=== PATIENT | female | born 1950 | race American Indian/Alaskan Native ===

== ENCOUNTER 2017-05-01 10:31 | Emergency (ER) | payer SELFPAY ==
[2017-05-01 11:21] VITALS: BP 152/87
--- NOTE | 2017-05-01 12:50 | XRay Report ---
RIGHT KNEE, 3 views: History: Right knee pain. The bony architecture is intact without evidence of fracture or dislocation. Mild osteoarthritic changes are noted in the medial compartment and patellofemoral space. No significant soft tissue abnormality is seen. IMPRESSION: Mild osteoarthritic changes. No acute process.
--- NOTE | 2017-05-01 13:10 | Emergency Department Report ---
ED Extremity Problem HPI - General Chief complaint: Extremity Injury, Lower Stated complaint: SEVERE RT LEG PAIN/UNABLE TO WALK Time Seen by Provider: 05/01/17 12:58 Source: patient Mode of arrival: Ambulatory Limitations: No Limitations - History of Present Illness Initial comments: Patient is a 66-year-old female presents to ED with complains of right knee pain. Patient reports that the pain has been ongoing for the past few days. Worse when she tries to stand up. While walking pain gets better. Denies any other symptoms or injuries. MD Complaint: extremity pain Onset/Timin -: week(s) Location: right, lower extremity History of Same: Yes -: Yes arthralgia Severity scale (0 -10): 7 Quality: aching, sharp Consistency: constant Improves with: rest Worsens with: weight bearing - Related Data Home Medications Medication Instructions Recorded Confirmed Last Taken No Known Home Medications [No 05/01/17 05/01/17 Unknown Reported Home Medications] Allergies Allergy/AdvReac Type Severity Reaction Status Date / Time ampicillin Allergy Unknown Verified 05/01/17 11:12 ED Review of Systems ROS: Stated complaint: SEVERE RT LEG PAIN/UNABLE TO WALK Other details as noted in HPI Constitutional: denies: chills, fever Eyes: denies: eye pain, eye discharge, vision change Respiratory: denies: cough, shortness of breath, wheezing Cardiovascular: denies: chest pain, palpitations Musculoskeletal: as per HPI, arthralgia (right knee). denies: back pain, joint swelling Neurological: denies: headache, weakness, paresthesias Psychiatric: denies: anxiety, depression ED Past Medical Hx - Past Medical History Previous Medical History?: No - Surgical History Past Surgical History?: Yes Additional Surgical History: partial historectomy 1995 - Social History Smoking Status: Never Smoker Substance Use Type: None - Medications Home Medications: Home Medications Medication Instructions Recorded Confirmed Last Taken Type No Known Home Medications [No 05/01/17 05/01/17 Unknown History Reported Home Medications] ED Physical Exam - General Limitations: No Limitations General appearance: alert, in no apparent distress - Head Head exam: Present: atraumatic, normocephalic - Eye Eye exam: Present: normal appearance - Neck Neck exam: Present: normal inspection - Respiratory Respiratory exam: Present: normal lung sounds bilaterally. Absent: respiratory distress - Cardiovascular Cardiovascular Exam: Present: regular rate, normal rhythm. Absent: systolic murmur, diastolic murmur, rubs, gallop - Expanded Lower Extremity Exam Right Knee exam: Present: normal inspection, full ROM, tenderness (right knee). Absent: swelling, abrasion, laceration, ecchymosis, deformity, crepidus, dislocation, erythema, effusion, posterior draw sign, pain/laxity with valgus, pain/laxity with varus, full knee extension Neuro vascular tendon exam: Present: no vascular compromise. Absent: pulse deficit, abnormal cap refill, motor deficit, sensory deficit, tendon deficit, extremity cold to touch, pallor Gait: Positive: observed and normal - Neurological Exam Neurological exam: Present: alert, oriented X3 - Psychiatric Psychiatric exam: Present: normal affect, normal mood ED Course Vital Signs 05/01/17 11:12 Temperature 99.1 F Pulse Rate 63 Respiratory 18 Rate Blood Pressure 152/87 O2 Sat by Pulse 100 Oximetry ED Medical Decision Making - Radiology Data Radiology results: report reviewed, image reviewed Osteoarthritic changes. No fractures or effusion. - Medical Decision Making Patient is resting comfortably and in the room. X-ray to right knee does not reveal any acute fractures or joint effusion. Mild osteoarthritic changes noted. We'll give Sharan wrap currently in the ED along with Motrin 800 mg. Advised follow-up with orthopedist in 2-3 days. - Differential Diagnosis right knee pain, right knee sprain, right meniscus tear, right knee injury. Critical care attestation.: If time is entered above; I have spent that time in minutes in the direct care of this critically ill patient, excluding procedure time. ED Disposition Clinical Impression: Right anterior knee pain Disposition: - TO HOME OR SELFCARE Is pt being admited?: No Does the pt Need Aspirin: No Condition: Stable Instructions: Arthralgia (ED), Knee Effusion (ED), Knee Pain (ED), Knee Exercises (GEN) Referrals: PABLITO MCGUIRE MD [Staff Physician] - 3-5 Days Time of Disposition: 13:11
== END 2017-05-01 13:44 | disposition home or self-care (01) ==
LOC: ED 10:31
DX: M25.561 Pain in right knee (principal); Z88.1 Allergy status to other antibiotic agents
CPT/HCPCS: 99283

== ENCOUNTER 2020-07-16 12:59 | Emergency (ER) | payer MEDICARE ==
[2020-07-16 14:25] VITALS: BP 134/85
--- NOTE | 2020-07-16 14:33 | Emergency Department Report ---
ED General Adult HPI - General Chief complaint: Nausea/Vomiting/Diarrhea Stated complaint: URINARY FREQUENCY Time Seen by Provider: 07/16/20 14:26 Source: patient Mode of arrival: Ambulatory Limitations: No Limitations - History of Present Illness Initial comments: 70-year-old [place] female presents emerged department complaining of having bouts of frequent diarrhea following her cholecystectomy surgery that she had a few days ago. She is follow-up with her surgeon who was advised to come to the emergency department to seek further evaluation treatment options she remained pain-free reports no nausea or vomiting and was advised she can eat whatever diet she would like. She reports having some hemorrhoid flareups since having the very frequent bowel movements that she reports having multiple in the course of the day with loose stools that are slightly formed a very soft. Consistency: constant Improves with: none Associated Symptoms: denies: cough, diaphoresis, malaise, nausea/vomiting, shortness of breath, syncope, weakness - Related Data Previous Rx's Medication Instructions Recorded Last Taken Type oxyCODONE /ACETAMINOPHEN [Percocet 1 tab PO Q4H PRN #12 tablet 07/06/20 Unknown Rx 5/325 mg] Allergies Allergy/AdvReac Type Severity Reaction Status Date / Time ampicillin Allergy Unknown Verified 05/01/17 11:12 ED Review of Systems ROS: Stated complaint: URINARY FREQUENCY Other details as noted in HPI Comment: All other systems reviewed and negative ED Past Medical Hx - Past Medical History Previous Medical History?: Yes Hx Hypertension: No Hx Heart Attack/AMI: No Hx Liver Disease: No Hx Renal Disease: No - Surgical History Past Surgical History?: Yes Hx Cholecystectomy: Yes Additional Surgical History: partial hysterectomy - Social History Smoking Status: Never Smoker Substance Use Type: None - Medications Home Medications: Home Medications Medication Instructions Recorded Confirmed Last Taken Type oxyCODONE /ACETAMINOPHEN [Percocet 1 tab PO Q4H PRN #12 tablet 07/06/20 Unknown Rx 5/325 mg] ED Physical Exam - General Limitations: No Limitations General appearance: alert, in no apparent distress - Head Head exam: Present: atraumatic, normocephalic - Eye Eye exam: Present: normal appearance - ENT ENT exam: Present: mucous membranes moist - Neck Neck exam: Present: normal inspection - Respiratory Respiratory exam: Present: normal lung sounds bilaterally. Absent: respiratory distress - Cardiovascular Cardiovascular Exam: Present: regular rate, normal rhythm. Absent: systolic murmur, diastolic murmur, rubs, gallop - GI/Abdominal GI/Abdominal exam: Present: soft, normal bowel sounds - Extremities Exam Extremities exam: Present: normal inspection - Back Exam Back exam: Present: normal inspection - Neurological Exam Neurological exam: Present: alert, oriented X3 - Psychiatric Psychiatric exam: Present: normal affect, normal mood - Skin Skin exam: Present: warm, dry, intact, normal color. Absent: rash ED Course Vital Signs 07/16/20 14:19 Temperature 99.3 F Pulse Rate 79 Respiratory 18 Rate Blood Pressure 134/85 O2 Sat by Pulse 97 Oximetry ED Medical Decision Making - Lab Data Result diagrams: 07/16/20 14:43 07/16/20 14:43 - Medical Decision Making Lab Results 07/16/20 07/16/20 07/16/20 Range/Units 14:43 14:43 Unknown WBC 9.4 (4.5-11.0) K/mm3 RBC 4.33 (3.65-5.03) M/mm3 Hgb 13.0 (10.1-14.3) gm/dl Hct 39.6 (30.3-42.9) % MCV 92 (79-97) fl MCH 30 (28-32) pg MCHC 33 (30-34) % RDW 15.0 (13.2-15.2) % Plt Count 283 (140-440) K/mm3 Lymph % (Auto) 24.4 (13.4-35.0) % [place] % (Auto) 10.8 H (0.0-7.3) % Eos % (Auto) 4.2 (0.0-4.3) % Baso % (Auto) 1.1 (0.0-1.8) % Lymph # (Auto) 2.3 (1.2-5.4) K/mm3 [place] # (Auto) 1.0 H (0.0-0.8) K/mm3 Eos # (Auto) 0.4 (0.0-0.4) K/mm3 Baso # (Auto) 0.1 (0.0-0.1) K/mm3 Seg Neutrophils % 59.5 (40.0-70.0) % Seg Neutrophils # 5.6 (1.8-7.7) K/mm3 Sodium 143 (137-145) mmol/L Potassium 5.1 H (3.6-5.0) mmol/L Chloride 102.5 (98-107) mmol/L Carbon Dioxide 27 (22-30) mmol/L Anion Gap 19 mmol/L BUN 6 L (7-17) mg/dL Creatinine 0.6 (0.6-1.2) mg/dL Estimated GFR > 60 ml/min BUN/Creatinine Ratio 10 % Glucose 95 (65-100) mg/dL Calcium 9.8 (8.4-10.2) mg/dL Total Bilirubin 0.40 (0.1-1.2) mg/dL AST 15 (5-40) units/L ALT 10 (7-56) units/L Alkaline Phosphatase 75 (35-129) units/L Total Protein 6.9 (6.3-8.2) g/dL Albumin 3.9 (3.9-5) g/dL Albumin/Globulin Ratio 1.3 % Urine Color Straw (Yellow) Urine Turbidity Clear (Clear) Urine pH 7.0 (5.0-7.0) Ur Specific [place] 1.011 (1.003-1.030) Urine Protein <15 mg/dl (Negative) mg/dL Urine Glucose (UA) Neg (Negative) mg/dL Urine Ketones Neg (Negative) mg/dL Urine Blood Neg (Negative) Urine Nitrite Neg (Negative) Urine Bilirubin Neg (Negative) Urine Urobilinogen < 2.0 (<2.0) mg/dL Ur Leukocyte Esterase Neg (Negative) Urine WBC (Auto) < 1.0 (0.0-6.0) /HPF Urine RBC (Auto) 1.0 (0.0-6.0) /HPF U Epithel Cells (Auto) < 1.0 (0-13.0) /HPF Urine Mucus Few /HPF 70-year-old female status post cholecystectomy and has experienced some version of diarrhea since having her gallbladder removed she reports no abdominal pain does have some tingling to the rectal region and suspicion for hemorrhoids but n o bleeding. She was advised to come to the emergency department to get her diarrhea evaluated as it was told to her that this is not a side effect of her gallbladder surgery I discussed with the patient the possibility of having postcholecystectomy diarrhea issues and advised of the appropriate diet. Is also been advised to follow-up with her general surgeon as well as possible gastroenterology gastroenterology should they feel that that is necessary Critical care attestation.: If time is entered above; I have spent that time in minutes in the direct care of this critically ill patient, excluding procedure time. ED Disposition Clinical Impression: Diarrhea following gastrointestinal surgery Disposition: [id number] TO HOME OR SELFCARE Is pt being admited?: No Does the pt Need Aspirin: No Condition: Stable Instructions: Acute Diarrhea (ED), Loperamide (By mouth) Additional Instructions: Gallbladder Removal Side Effects: Digestive Complications While it is not the norm to experience digestive problems after gallbladder surgery, they can include: Difficulty digesting fatty foods. Some people have a slightly more difficult time digesting fatty foods for the first month after surgery. Eating a low-fat diet may help. Temporary diarrhea. Because your gallbladder is no longer there to regulate the flow of bile, it will flow more constantly, but in smaller amounts, into your small intestine. This can lead to diarrhea for the first few days after surgery in many people. This side effect is most often temporary, and no treatment is needed. But if you have diarrhea that lasts for more than three days, call your doctor. Chronic diarrhea. Some people who did not previously have more than one bowel movement per day will find themselves having more frequent bowel movements after gallbladder removal. These can sometimes be loose and watery, and be accompanied by a sense of urgency. Recent studies have found that this can occur in up to 17 percent of people after gallbladder removal. Men younger than age 50, especially if they are obese, have the highest likelihood of long-term diarrhea after gallbladder surgery, but a significant number of people without those risk factors may also have diarrhea for months to years after surgery. Eating a low-fat diet may help lessen symptoms, and treatments with medications which bind the excess bile acids which are thought to be the cause of this bothersome symptom often alleviate the problem. Referrals: CECILE GOLDMAN MD [Staff Physician] - 3-5 Days [facility] [Provider Group] - 3-5 Days
[2020-07-16 15:06] LABS: Basophils # (Auto) 0.1 K/mm3 (0.0-0.1); Basophils % (Auto) 1.1 % (0.0-1.8); Eosinophils # (Auto) 0.4 K/mm3 (0.0-0.4); Eosinophils % (Auto) 4.2 % (0.0-4.3); Hematocrit 39.6 % (30.3-42.9); Lymphocytes # (Auto) 2.3 K/mm3 (1.2-5.4); Lymphocytes % (Auto) 24.4 % (13.4-35.0); Mean Corpuscular HGB Conc 33 % (30-34); Mean Corpuscular Volume 92 fl (79-97); Monocytes % (Auto) 10.8 % (0.0-7.3); Platelet Count 283 K/mm3 (140-440); Red Blood Count 4.33 M/mm3 (3.65-5.03)
[2020-07-16 15:27] LABS: Alanine Aminotransferase 10 units/L (7-56); Albumin 3.9 g/dL (3.9-5); Blood Urea Nitrogen 6 mg/dL (7-17); Hemolysis Index 10
[2020-07-16 15:29] LABS: BUN/Creatinine Ratio 10
[2020-07-16 15:35] LABS: Calcium 9.8 mg/dL (8.4-10.2)
[2020-07-16 16:17] LABS: Bilirubin,Urine NEG (Negative); Blood,Urine NEG (Negative); Color,Urine Straw (Yellow); Mucus,Urine FEW /HPF; Protein,Urine <15 mg/dL mg/dL (Negative); Urobilinogen,Urine < 2.0 mg/dL (<2.0); WBC,Urine < 1.0 /HPF (0.0-6.0)
== END 2020-07-16 18:09 | disposition home or self-care (01) ==
LOC: ED 12:59
DX: R19.7 Diarrhea, unspecified (principal); Z90.49 Acquired absence of other specified parts of digestive tract; Z98.890 Other specified postprocedural states; Z79.899 Other long term (current) drug therapy; Z88.1 Allergy status to other antibiotic agents
CPT/HCPCS: 36415; 80053; 81001; 85025